=== PATIENT | male | born 1955 | race Caucasian/White ===

== ENCOUNTER → 2023-04-23 07:26 | Outpatient (REF) | payer MEDICARE, OTHER, SELFPAY | LOC: RAD 07:26 | PROVIDERS: ATTENDING PHYSICIAN Family Medicine | DX: R42 Dizziness and giddiness (principal); G45.4 Transient global amnesia | CPT/HCPCS: 76770; 93880 ==

== ENCOUNTER → 2023-12-13 07:14 | Outpatient (REF) | payer MEDICARE, OTHER, SELFPAY ==
[2023-12-13 09:23] LABS: % Basophils 1.4 % (0-2); % Eosinophils 5.4 % (0-6); % Immature Granulocytes 0.3 % (0-0.5); % Lymphocytes 31.5 % (20.5-51.1); % Monocytes 9.9 % (1.7-9.3); % Neutrophils 51.5 % (42.2-75.2); Absolute Basophils 0.1 10^3/uL (0-0.2); Absolute Eosinophils 0.3 10^3/uL (0-0.7); Absolute Monocytes 0.6 10^3/uL (0.1-0.6); Absolute Neutrophils 3.2 10^3/uL (1.4-6.5); Hematocrit 42.2 % (39.0-52.0); Hemoglobin 14.1 g/dL (13.0-18.0); Mean Corp Hgb Conc. 33.4 g/dL (33.0-37.0); Mean Corpuscular Hgb 31.3 pg (27.0-31.0); Mean Corpuscular Volume 93.8 fL (80.0-94.0); Mean Platelet Volume 10.3 fL (7.4-10.4); Nucleated Red Blood Cells % 0 % (-); Platelet Count 233 10^3/uL (130-400); Red Cell Dist. Width 12.2 % (11.5-14.5); White Blood Cell Count 6.3 10^3/uL (4.8-10.8)
[2023-12-13 10:07] LABS: Blood Urea Nitrogen 27 mg/dl (9-20); Calcium 9.2 mg/dl (8.4-10.2); Carbon Dioxide 27 mmol/L (22-30); Chloride 104 mmol/L (98-107); Glucose 106 mg/dl (70-99); Potassium 4.5 mmol/L (3.5-5.1); Sodium 142 mmol/L (135-145); eGFR > 60.00
== END ==
LOC: HWRAD 07:14
PROVIDERS: ATTENDING PHYSICIAN Specialist; FAMILY PHYSICIAN Family Medicine
DX: M25.511 Pain in right shoulder (principal); Z01.818 Encounter for other preprocedural examination
CPT/HCPCS: 36415; 73200; 80048; 85025; 93005

== ENCOUNTER → 2024-05-05 08:01 | Outpatient (REF) | payer MEDICARE, OTHER, SELFPAY | LOC: HWRAD 08:01 | PROVIDERS: ATTENDING PHYSICIAN Family Medicine; REFERRING PHYSICIAN Specialist | DX: R31.9 Hematuria, unspecified (principal) | CPT/HCPCS: 74176 ==

== ENCOUNTER 2024-05-14 06:28 | Day surgery (SDC) | payer MEDICARE, OTHER, SELFPAY ==
[2024-05-14] VITALS (9 sets, daily range): BP systolic 112–147; BP diastolic 71–94; BMI 23.8
[2024-05-14] MEDS: NORMOSOL-R/PLASMALYTE-A 1000 IV (10:15)
[2024-05-14] MEDS: SUBLIMAZE 25 MCG IV ×3 (12:50→13:16)
[2024-05-14] MEDS: Pyridium 200 MG PO (13:11)
[2024-05-14] MEDS: MOTRIN 600 MG PO (14:10)
== END 2024-05-14 15:15 | disposition home or self-care (01) ==
LOC: SDS 06:28
PROVIDERS: ATTENDING PHYSICIAN Specialist
DX: N20.2 Calculus of kidney with calculus of ureter (principal)
CPT/HCPCS: 52356; 74018; 76000; C2617

== ENCOUNTER 2024-05-15 06:56 | Inpatient (IN) | payer MEDICARE, OTHER, SELFPAY ==
[2024-05-14 23:05] VITALS: BP 154/114
[2024-05-14] MEDS: DILAUDID 1 MG IV (23:39)
[2024-05-14] MEDS: ZOFRAN 4 MG IV (23:39)
[2024-05-14 23:46] VITALS: BMI 23.6
[2024-05-15] VITALS (11 sets, daily range): BP systolic 119–149; BP diastolic 82–100; BMI 24.6
[2024-05-15 00:09] LABS: % Basophils 0.2 % (0-2); % Immature Granulocytes 0.4 % (0-0.5); % Lymphocytes 6.3 % (20.5-51.1); % Monocytes 2.8 % (1.7-9.3); % Neutrophils 90.3 % (42.2-75.2); Absolute Lymphocytes 0.6 10^3/uL (1.2-3.4); Absolute Monocytes 0.3 10^3/uL (0.1-0.6); Absolute Neutrophils 8.5 10^3/uL (1.4-6.5); Hematocrit 39.2 % (39.0-52.0); Hemoglobin 13.7 g/dL (13.0-18.0); Mean Corp Hgb Conc. 34.9 g/dL (33.0-37.0); Mean Corpuscular Hgb 31.6 pg (27.0-31.0); Mean Corpuscular Volume 90.3 fL (80.0-94.0); Mean Platelet Volume 10.4 fL (7.4-10.4); Nucleated Red Blood Cells % 0 % (-); Platelet Count 211 10^3/uL (130-400); Red Blood Cell Count 4.34 10^6/uL (4.70-6.10); Red Cell Dist. Width 11.9 % (11.5-14.5); White Blood Cell Count 9.4 10^3/uL (4.8-10.8)
[2024-05-15 00:15] LABS: ALT (SGPT) 20 U/L (0-50); AST (SGOT) 26 U/L (17-59); Albumin 4.4 g/dl (3.5-5.0); Alkaline Phosphatase 51 U/L (38-126); Blood Urea Nitrogen 25 mg/dl (9-20); Calcium 9.6 mg/dl (8.4-10.2); Carbon Dioxide 23 mmol/L (22-30); Chloride 102 mmol/L (98-107); Estimated Creatinine Clearance 91 ml/min; Glucose 144 mg/dl (70-99); Potassium 4.3 mmol/L (3.5-5.1); Sodium 132 mmol/L (135-145); Total Bilirubin 0.6 mg/dl (0.2-1.3); Total Protein 6.9 g/dl (6.3-8.2); eGFR > 60.00
--- NOTE | 2024-05-15 00:37 | ED.GENMED ---
History of Present Illness
<Javier Aguirre PA-C - Last Filed: 05/16/24 15:13>
General
Chief Complaint: Post Operative Problem(s)
Time Seen by Provider: 05/14/24 23:16
History of Present Illness
History of Present Illness:
68-year-old male with history of hypertension and hyperlipidemia presents the emergency department for evaluation of severe left lower quadrant/left pelvic pain beginning immediately after waking up from his urologic procedure earlier today. He
underwent laser lithotripsy of several ureteral and renal pelvis stones with placement of a ureteral stent. He states he woke up in severe pain and had a syncopal event in the PACU however was discharged nevertheless. At this time the patient is
writhing in pain, has had several episodes of vomiting.
Past History
<Javier Aguirre PA-C - Last Filed: 05/16/24 15:13>
Past History
ED Past Medical History: GERD, HTN, Hypercholesterolemia, Psychiatric (Anxiety) and Other (hypoglycemia); Negative CAD or CVA
ED Past Surgical History: Appendectomy, Orthopedic (Right shoulder arthroscopy, surgery for left knee torn ligament) and Other (hernia repair)
Social History
Tobacco: Non-smoker
Alcohol: Daily
Drug: None
Personal:
Living: with family
Employment: Employed
Family History
Family History: CAD (Father with heart issues and lung cancer, was a heavy smoker)
Review of Systems
<Javier Aguirre PA-C - Last Filed: 05/16/24 15:13>
Review of Systems
Allergies reviewed?: Yes
All Other Systems: ROS reviewed and negative except as documented in HPI and ROS
Phy Exam
<Javier Aguirre PA-C - Last Filed: 05/16/24 15:13>
Physical Exam
Physical Exam:
GEN: Writhing in pain, visibly uncomfortable
HEENT: Oral mucosa moist, no scleral icterus
Cardiac: Regular rate
Lung: No respiratory distress, no tachypnea
MSK: No gross deformity or injuries
Skin: Good color, no pallor or jaundice, no rashes
Neuro: AO x3, moves all extremities freely
Psych: Calm, cooperative
Sepsis
<Javier Aguirre PA-C - Last Filed: 05/16/24 15:13>
Sepsis Screen
Sepsis Screen: Sepsis Ruled Out
Date: 05/16/24
Time: 15:13
<Kamilla Hdez DO - Last Filed: 05/15/24 06:01>
Sepsis Screening
Sepsis Assessment: Sepsis Ruled Out
Sepsis Screen
Sepsis Screen: Sepsis Ruled Out
Date: 05/15/24
Time: 05:58
Course
<Javier Aguirre PA-C - Last Filed: 05/16/24 15:13>
Orders/Labs/Results
Orders:
Orders
05/14/24 23:22
Urinalysis Reflex To Culture Urgent
Date Specimen was Collected: 05/15/24
Time Specimen was Collected: 01:23
05/14/24 23:33
HYDROmorphone [Dilaudid] 1 mg .ROUTE .STK-MED ONE
HYDROmorphone [Dilaudid] 1 mg IV NOW STA
Ondansetron Injectable [Zofran] 4 mg .ROUTE .STK-MED ONE
Ondansetron Injectable [Zofran] 4 mg IV NOW STA
05/14/24 23:44
Complete Blood Count/With Diff Urgent
Comprehensive Metabolic Panel Urgent
05/15/24 00:18
CT Abd/pel Without Iv Or Oral Urgent
Comment:
Reason For Exam: LLQ pain after ureteral stenting
05/15/24 00:51
Hyoscyamine Sulfate [Levsin] 0.25 mg PO NOW STA
Ketorolac [Toradol] 15 mg IV NOW STA
05/15/24 00:59
Hyoscyamine Sulfate [Levsin] 0.25 mg PO NOW STA
05/15/24 01:25
Urine Microscopic Reflex Cult Urgent
Urine Culture Urgent
DELMA Source: U
Specimen Description:
Date Specimen was Collected: 05/15/24
Time Specimen was Collected: 01:23
05/15/24 01:39
Pisano Placement- Treatment ONCE
Reason for insertion: Outlet obstruction
05/15/24 02:00
UROLOGY CONSULT Urgent
Consulting Provider: Ric Ponce Jr.
Was physician already notified: Yes
05/15/24 05:50
HYDROmorphone [Dilaudid] 0.5 mg IV NOW STA
Ketorolac [Toradol] 15 mg IV Q6HPRN PRN
05/15/24 06:35
Admit/Transfer Patient As Directed
Co-Sign Provider:
Level of Care: Inpatient admission
Assign to:: Medical/Surgical
Physician / Group: janes
Diagnosis: renal colic
Patient Condition: Fair
Reason for Hospitalization: intractable pain
Expected length of stay greater than two midnights?: Yes
ELOS- Estimated Length of Stay in days: 3
I certify the patient meets the requirements for IP care: Yes
PRN Pain Medication Management As Directed
May give lesser potent ordered pain med per pt: Yes
preference::
Protocol:: Medication orders for pain may be administered in a
manner that supports deferring to patient preference
when the pt is:
- Requesting an ordered lesser potent pain medication.
Least to most potent pain medications are defined
as: acetaminophen < NSAID < tramadol < opioids
(morphine, oxycodone, hydromorphone).
- Requesting a lesser dose of the same medication IF
ORDERED.
- Requesting a less intrusive route of administration
if both routes are prescribed by the provider (PO <
IV).
05/15/24 09:34
0.9% Sodium Chloride 1000 ml [Nss] 1,000 ml IV 80 mls/hr
Acetaminophen [Tylenol] 650 mg PO Q4HPRN PRN
Amlodipine [Norvasc] 5 mg PO DAILY
CeFAZolin 1 GRAM [Ancef] 1 gram in 5 ml IV Q8H
Docusate Sodium [Colace] 100 mg PO BID
Losartan [Cozaar] 25 mg PO DAILY
Multivitamin [Theragran] 1 tablet PO DAILY
Pantoprazole [Protonix] 40 mg PO HSPRN PRN
Promethazine [Phenergan] 25 mg 0.9% Sodium Chloride 50 ml [Nss] 50 ml IV Q6HPRN
Tolterodine Extended Release [Detrol LA] 4 mg PO DAILY
coenzyme Q10 200 mg PO DAILY
diazePAM [Valium Injection] 5 mg IV Q4HPRN PRN
05/15/24 09:34
Case Management Consult Once
Case Management Consult: VN/Home Care
Requested By:: PHYSICIAN
Comment: home pisano care
Activity As Directed
Activity Level: Out of Bed- Ad Anisha
Anti-embolism (JOAN) Hose As Directed
Type: Thigh high
Catheter- Indwelling As Directed
Reason for insertion: Urology Determination
Intake/ Output As Directed
Frequency: Per unit guidelines
Nursing to Place Non Medication Order As Directed
Physician Order: Pisano to leg bag during the day and leg bag teaching
Pneumatic Compression Sleeves As Directed
Type: Thigh high
DX Deep Vein Thrombosis Video Routine
05/15/24 Lunch
Clear Liquid
At Your Request: Full Participation
Does patient need a safe tray?: No
05/15/24 10:21
HYDROmorphone [Dilaudid] 0.5 mg IV Q3HPRN PRN
05/15/24 18:00
Ketorolac [Toradol] 30 mg IV Q8H
05/15/24 22:00
Duloxetine Delayed Release [Cymbalta Delayed Release] 20 mg PO HS
Rosuvastatin Calcium [Crestor] 5 mg PO HS
05/16/24 07:02
Basic Metabolic Panel IN AM
Complete Blood Count/No Diff IN AM
Abnormal Lab Results
05/14/24 05/15/24
23:44 01:25
RBC 4.34 L 10^6/uL
(4.70-6.10)
MCH 31.6 H pg
(27.0-31.0)
Absolute Neuts (auto) 8.5 H 10^3/uL
(1.4-6.5)
Absolute Lymphs (auto) 0.6 L 10^3/uL
(1.2-3.4)
Neutrophils % 90.3 H %
(42.2-75.2)
Lymphocytes % 6.3 L %
(20.5-51.1)
Sodium 132 L mmol/L
(135-145)
BUN 25 H mg/dl
(9-20)
Glucose 144 H mg/dl
(70-99)
Ur Occult Blood Reflex 4+ A
(Negative)
Urine Nitrite (Reflex) Positive A
(Negative)
Urine Bilirubin 1+ A
(Negative)
Leukocyte Esterase Rfl 2+ A
(Negative)
Urine RBC >100 A /HPF
(0-2)
Urine WBC (Reflex) >100 A /HPF
(0-5)
Urine Bacteria (Reflex) Moderate A
(Negative)
Urine Albumin (Reflex) 3+ A
(Neg - Trace)
05/14/24 23:44
05/14/24 23:44
Vital Signs
Initial and Last Documented VS:
Initial Vital Signs
Pulse Resp BP Pulse Ox
114 30 154/114 98
05/14/24 23:05 05/14/24 23:05 05/14/24 23:05 05/14/24 23:05
Last Documented Vital Signs
Temp Pulse Resp BP Pulse Ox
97.8 F 61 16 147/95 95
05/16/24 07:41 05/16/24 07:41 05/16/24 07:41 05/16/24 07:41 05/16/24 07:41
<Kamilla Hdez DO - Last Filed: 05/15/24 06:01>
Orders/Labs/Results
Orders:
Orders
05/14/24 23:22
Urinalysis Reflex To Culture Urgent
Date Specimen was Collected: 05/15/24
Time Specimen was Collected: 01:23
05/14/24 23:33
HYDROmorphone [Dilaudid] 1 mg .ROUTE .STK-MED ONE
HYDROmorphone [Dilaudid] 1 mg IV NOW STA
Ondansetron Injectable [Zofran] 4 mg .ROUTE .STK-MED ONE
Ondansetron Injectable [Zofran] 4 mg IV NOW STA
05/14/24 23:44
Complete Blood Count/With Diff Urgent
Comprehensive Metabolic Panel Urgent
05/15/24 00:18
CT Abd/pel Without Iv Or Oral Urgent
Comment:
Reason For Exam: LLQ pain after ureteral stenting
05/15/24 00:51
Hyoscyamine Sulfate [Levsin] 0.25 mg PO NOW STA
Ketorolac [Toradol] 15 mg IV NOW STA
05/15/24 00:59
Hyoscyamine Sulfate [Levsin] 0.25 mg PO NOW STA
05/15/24 01:25
Urine Microscopic Reflex Cult Urgent
Urine Culture Urgent
DELMA Source: U
Specimen Description:
Date Specimen was Collected: 05/15/24
Time Specimen was Collected: 01:23
05/15/24 01:39
Pisano Placement- Treatment ONCE
Reason for insertion: Outlet obstruction
05/15/24 02:00
UROLOGY CONSULT Urgent
Consulting Provider: Ric Ponce Jr.
Was physician already notified: Yes
05/15/24 05:50
HYDROmorphone [Dilaudid] 0.5 mg IV NOW STA
Ketorolac [Toradol] 15 mg IV Q6HPRN PRN
05/15/24 06:35
Admit/Transfer Patient As Directed
Co-Sign Provider:
Level of Care: Inpatient admission
Assign to:: Medical/Surgical
Physician / Group: janes
Diagnosis: renal colic
Patient Condition: Fair
Reason for Hospitalization: intractable pain
Expected length of stay greater than two midnights?: Yes
ELOS- Estimated Length of Stay in days: 3
I certify the patient meets the requirements for IP care: Yes
PRN Pain Medication Management As Directed
May give lesser potent ordered pain med per pt: Yes
preference::
Protocol:: Medication orders for pain may be administered in a
manner that supports deferring to patient preference
when the pt is:
- Requesting an ordered lesser potent pain medication.
Least to most potent pain medications are defined
as: acetaminophen < NSAID < tramadol < opioids
(morphine, oxycodone, hydromorphone).
- Requesting a lesser dose of the same medication IF
ORDERED.
- Requesting a less intrusive route of administration
if both routes are prescribed by the provider (PO <
IV).
05/15/24 09:34
0.9% Sodium Chloride 1000 ml [Nss] 1,000 ml IV 80 mls/hr
Acetaminophen [Tylenol] 650 mg PO Q4HPRN PRN
Amlodipine [Norvasc] 5 mg PO DAILY
CeFAZolin 1 GRAM [Ancef] 1 gram in 5 ml IV Q8H
Docusate Sodium [Colace] 100 mg PO BID
Losartan [Cozaar] 25 mg PO DAILY
Multivitamin [Theragran] 1 tablet PO DAILY
Pantoprazole [Protonix] 40 mg PO HSPRN PRN
Promethazine [Phenergan] 25 mg 0.9% Sodium Chloride 50 ml [Nss] 50 ml IV Q6HPRN
Tolterodine Extended Release [Detrol LA] 4 mg PO DAILY
coenzyme Q10 200 mg PO DAILY
diazePAM [Valium Injection] 5 mg IV Q4HPRN PRN
05/15/24 09:34
Case Management Consult Once
Case Management Consult: VN/Home Care
Requested By:: PHYSICIAN
Comment: home pisano care
Activity As Directed
Activity Level: Out of Bed- Ad Anisha
Anti-embolism (JOAN) Hose As Directed
Type: Thigh high
Catheter- Indwelling As Directed
Reason for insertion: Urology Determination
Intake/ Output As Directed
Frequency: Per unit guidelines
Nursing to Place Non Medication Order As Directed
Physician Order: Pisano to leg bag during the day and leg bag teaching
Pneumatic Compression Sleeves As Directed
Type: Thigh high
DX Deep Vein Thrombosis Video Routine
05/15/24 Lunch
Clear Liquid
At Your Request: Full Participation
Does patient need a safe tray?: No
05/15/24 10:21
HYDROmorphone [Dilaudid] 0.5 mg IV Q3HPRN PRN
05/15/24 18:00
Ketorolac [Toradol] 30 mg IV Q8H
05/15/24 22:00
Duloxetine Delayed Release [Cymbalta Delayed Release] 20 mg PO HS
Rosuvastatin Calcium [Crestor] 5 mg PO HS
05/16/24 07:02
Basic Metabolic Panel IN AM
Complete Blood Count/No Diff IN AM
Abnormal Lab Results
05/14/24 05/15/24
23:44 01:25
RBC 4.34 L 10^6/uL
(4.70-6.10)
MCH 31.6 H pg
(27.0-31.0)
Absolute Neuts (auto) 8.5 H 10^3/uL
(1.4-6.5)
Absolute Lymphs (auto) 0.6 L 10^3/uL
(1.2-3.4)
Neutrophils % 90.3 H %
(42.2-75.2)
Lymphocytes % 6.3 L %
(20.5-51.1)
Sodium 132 L mmol/L
(135-145)
BUN 25 H mg/dl
(9-20)
Glucose 144 H mg/dl
(70-99)
Ur Occult Blood Reflex 4+ A
(Negative)
Urine Nitrite (Reflex) Positive A
(Negative)
Urine Bilirubin 1+ A
(Negative)
Leukocyte Esterase Rfl 2+ A
(Negative)
Urine RBC >100 A /HPF
(0-2)
Urine WBC (Reflex) >100 A /HPF
(0-5)
Urine Bacteria (Reflex) Moderate A
(Negative)
Urine Albumin (Reflex) 3+ A
(Neg - Trace)
05/14/24 23:44
05/14/24 23:44
Vital Signs
Initial and Last Documented VS:
Initial Vital Signs
Pulse Resp BP Pulse Ox
114 30 154/114 98
05/14/24 23:05 05/14/24 23:05 05/14/24 23:05 05/14/24 23:05
Last Documented Vital Signs
Temp Pulse Resp BP Pulse Ox
97.8 F 61 16 147/95 95
05/16/24 07:41 05/16/24 07:41 05/16/24 07:41 05/16/24 07:41 05/16/24 07:41
<Javier Aguirre PA-C - Last Filed: 05/16/24 15:13>
MDM/Problems Addressed
MDM/Problems Addressed:
68-year-old male presents with severe pain after ureteral stent placement. Imaging shows no evidence of complications. Pain was quite difficult to control, discussed with urology they recommend Pisano catheter placement however symptoms persisted
despite this. Will remain in the emergency department for [facility] urology consultation to determine further management. call center director urologist Dr Ponce acknowledged text message at [phone] regarding consult, will see in ED
<Javier Aguirre PA-C - Last Filed: 05/16/24 15:13>
*Critical Care Note
Total Time (30-74mins, 75-104mins- exclusive of procedures): Not Applicable
<Javier Aguirre PA-C - Last Filed: 05/16/24 15:13>
Update Note
Update Note:
CT showed no acute concerning findings, anticipated postsurgical changes. Discussed case with urology as I feel admission is appropriate at this juncture, urology recommends Pisano placement and if patient's pain is well-controlled may be discharged
outpatient follow-up
<Kamilla Hdez DO - Last Filed: 05/15/24 06:01>
Update Note
Update Note:
CT showed no acute concerning findings, anticipated postsurgical changes. Discussed case with urology as I feel admission is appropriate at this juncture, urology recommends Pisano placement and if patient's pain is well-controlled may be discharged
outpatient follow-up
ED Attending Note
<Javier Aguirre PA-C - Last Filed: 05/16/24 15:13>
-
Portions of this chart may have been created with voice recognition software.� Occasional wrong word or��sound alike� substitutions may have occurred due to the inherent limitations of voice recognition software.
<Kamilla Hdez DO - Last Filed: 05/15/24 06:01>
ED Attending Note
Patient seen and examined by attending physician: Yes
I performed a history and physical exam of patient and discussed management with resident, I reviewed resident's note and agree with documented findings and plan of care.: Yes
ED Attending Note:
06:00
Patient presents this evening after undergoing laser lithotripsy with stent placement yesterday. Complains of severe pain, syncopal event without injury after procedure and continued reports of orthostasis.
He remains afebrile, hemodynamically stable.
No significant relief after IV Dilaudid but has had significant relief after small IV dose of Toradol. Has been sleeping over the past 5 hours.
Pain is now returning.
Will give a small IV dose of Dilaudid and plan for additional dose of Toradol at 7 AM.
Pisano catheter draining clear amanda urine.
Will continue to observe in the ED with plan for urology evaluation at bedside this morning.
Discharge Plan
Departure
Patient Disposition: Admit
Presentation/result/management discussed w/ accepting MD/DO: urology
Discharge Problem:
Pain due to ureteral stent
Interventions
Interventions:
*Risk Screen - Suicide Last Done: 05/14/24 23:46
*General Assessment Last Done: 05/14/24 23:46
*Neglect/Abuse Screening Last Done: 05/14/24 23:46
*ED- Fall Risk Assessment Last Done: 05/14/24 23:46
*ED COVID-19 Vaccine History Last Done: 05/14/24 23:46
*Nursing Disposition Last Done: 05/15/24 09:31
ED-Skin Assessment Last Done: 05/15/24 06:00
Discharge Date and Time
Discharge Date/Time: 05/15/24 09:30
[2024-05-15] MEDS: LEVSIN 0.25 MG PO (01:18)
[2024-05-15] MEDS: TORADOL 15 MG IV ×2 (01:18→09:23)
[2024-05-15 01:40] LABS: Urine Albumin 3+ (Neg - Trace); Urine Bilirubin 1+ (Negative); Urine Character Slightly Cloudy (Clear); Urine Color Yellow; Urine Glucose Negative (Negative); Urine Ketone Negative (Negative); Urine Leukocyte 2+ (Negative); Urine Nitrite Positive (Negative); Urine Occult Blood 4+ (Negative); Urine Urobilinogen 1+ (Neg - 1+)
[2024-05-15 02:30] LABS: Urine Bacteria Moderate (Negative); Urine Red Blood Cell >100 /HPF (0-2); Urine White Cell >100 /HPF (0-5)
[2024-05-15] MEDS: DILAUDID 0.5 MG IV (05:55)
--- NOTE | 2024-05-15 06:40 | W.PN.ADMIT ---
Progress Note - Admit
Progress Note - Admit
see dictated note
pt with left u/l/s yesterday with dr spann
now with intractable LLQ pain despite pisano placement and meds
labs wnl except mildly low sodium/ct- prelim read-stent in good position- o hydro or sig extrav
pt's pain continues and he does not feel he can manage at home
no evid at this time of any sig pathology
admit for pain control- check ucx- continue pisano
--- NOTE | 2024-05-15 09:30 | EDRN ---
Patient taken to room 318-2 on stretcher by tool repair technician.
--- NOTE | 2024-05-15 09:46 | W.PN.UPDATE ---
Update Note
Progress Note Update
Pt see in ED.
Reports severe pain with micturition and persistent pain in LLQ.
'urine is normal color again'
no fevers, chills
pre-op urine cx demonstrated no growth
left ureteral stent is in proper position per CT
plan: pain control; will discharge when pain is managed
[2024-05-15] MEDS: DETROL LA 4 MG PO (10:05)
[2024-05-15] MEDS: COZAAR 25 MG PO (10:05)
[2024-05-15] MEDS: COLACE 100 MG PO ×2 (10:05→20:03)
[2024-05-15] MEDS: NORVASC 5 MG PO (10:05)
[2024-05-15] MEDS: THERAGRAN 1 TABLET PO (10:05)
[2024-05-15] MEDS: FLOMAX 0.4 MG PO (10:05)
[2024-05-15] MEDS: OMNICEF 300 MG PO ×2 (10:05→20:03)
[2024-05-15] MEDS: NSS 1000 IV ×2 (10:06→23:16)
[2024-05-15] MEDS: TORADOL 30 MG IV (17:07)
[2024-05-15] MEDS: CYMBALTA DELAYED RELEASE 20 MG PO (20:02)
[2024-05-15] MEDS: CRESTOR 5 MG PO (20:03)
[2024-05-16 00:40] VITALS: BP 143/59
[2024-05-16] MEDS: TORADOL 30 MG IV ×2 (01:32→09:58)
[2024-05-16 05:47] VITALS: BMI 24.4
[2024-05-16 07:26] LABS: Hematocrit 40.6 % (39.0-52.0); Hemoglobin 13.7 g/dL (13.0-18.0); Mean Corp Hgb Conc. 33.7 g/dL (33.0-37.0); Mean Corpuscular Hgb 32.1 pg (27.0-31.0); Mean Corpuscular Volume 95.1 fL (80.0-94.0); Mean Platelet Volume 10.5 fL (7.4-10.4); Platelet Count 199 10^3/uL (130-400); Red Blood Cell Count 4.27 10^6/uL (4.70-6.10); Red Cell Dist. Width 12.5 % (11.5-14.5); White Blood Cell Count 9.3 10^3/uL (4.8-10.8)
[2024-05-16 07:41] VITALS: BP 147/95
[2024-05-16 07:43] LABS: Blood Urea Nitrogen 20 mg/dl (9-20); Calcium 9.1 mg/dl (8.4-10.2); Carbon Dioxide 26 mmol/L (22-30); Chloride 107 mmol/L (98-107); Estimated Creatinine Clearance 75 ml/min; Glucose 92 mg/dl (70-99); Potassium 4.4 mmol/L (3.5-5.1); Sodium 141 mmol/L (135-145); eGFR > 60.00
--- NOTE | 2024-05-16 08:17 | W.PN.URO.CBU ---
Today's Communication / Plan
-
discharge
Assessment / Plan
-
stable/improved
Diagnosis
-
Date of Service: May 16, 2024
-
Patient Diagnosis: left nephrolithiasis s/p ureteroscopy, laser lithotripsy, stenting 05/14; intractable post-op pain
Post Op Day: 2
Subjective
-
feels better
renal pain during micturition
Objective
-
Vital Signs
Temp Pulse Resp BP Pulse Ox
97.8 F 61 16 147/95 95
05/16/24 07:41 05/16/24 07:41 05/16/24 07:41 05/16/24 07:41 05/16/24 07:41
Intake and Output
05/15/24 05/16/24 05/17/24
06:59 06:59 06:59
Intake Total 1260 / 1260
Output Total 2650 / 2650
Balance -1390 / -1390
Intake:
Oral fluids 1260 / 1260
Output:
Urine, Gallagher 850 / 850
Urine, Voided 1800 / 1800
Other:
Number of approximated MODERATE 8
amounts of urine
Laboratory Results
05/16/24 07:02
05/16/24 07:02
Physical Exam
-
General - well developed, well nourished, no acute distress
Chest - clear bilaterally
Abdomen - soft, non-tender, positive bowel sounds, no CVAT, no distention
Skin - warm & dry with no rash
Neuro - AOx3, no motor deficits
Extremities - no clubbing, no cyanosis, no edema
--- NOTE | 2024-05-16 08:19 | W.DS.TRANS ---
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
-
Discharge Instructions:
Discharge Diagnosis/Procedures Pain s/p Left Ureteroscopy, Laser Lithotripsy
and Stenting
Diet No restrictions
Activity No restrictions
Driving Restrictions no driving while taking prescription pain
medicati
Bathing Restrictions None
Instructions:
Stand-Alone Forms:
Changes to Home Medications: No
Discharge Medications:
DC Medications w/original date entered in [facility]
amlodipine 5 mg tablet 5 mg PO DAILY Blood Pressure 04/15/16
pantoprazole 40 mg tablet,delayed release 40 mg PO HS gerd 04/15/16
rosuvastatin 5 mg tablet 10 mg PO HS High Cholesterol 04/15/16
duloxetine 20 mg capsule,delayed release 20 mg PO HS Mental Health/Anxiety 08/14/17
losartan 25 mg tablet 25 mg PO DAILY Blood Pressure 08/14/17
meloxicam 15 mg tablet 15 mg PO DAILYPRN PRN mild pain 05/12/24
multivitamin 1 tab PO DAILY Supplement 05/12/24
turmeric 400 mg capsule 400 mg PO DAILY Supplement 05/12/24
coenzyme Q10 30 mg capsule 200 mg PO DAILY Supplement 05/15/24
ibuprofen 200 mg tablet (Advil) 800 mg PO HSPRN PRN mild pain 05/15/24
tamsulosin 0.4 mg capsule 0.4 mg PO BID to reduce stent bother #30 caps 05/15/24
tramadol 50 mg tablet 50 mg PO TID PRN severe pain #20 tabs 05/15/24
cefdinir 300 mg capsule 300 mg PO BID #10 caps 05/16/24
Home Medication Changes
Pending Results: No
[2024-05-16] MEDS: NORVASC 5 MG PO (08:49)
[2024-05-16] MEDS: COLACE 100 MG PO (08:49)
[2024-05-16] MEDS: DETROL LA 4 MG PO (08:49)
[2024-05-16] MEDS: THERAGRAN 1 TABLET PO (08:49)
[2024-05-16] MEDS: COZAAR 25 MG PO (08:49)
[2024-05-16] MEDS: FLOMAX 0.4 MG PO (08:49)
[2024-05-16] MEDS: OMNICEF 300 MG PO (08:49)
== END 2024-05-16 10:12 | disposition home or self-care (01) | DRG 700 ==
LOC: 3 WEST ACU 06:56
PROVIDERS: Physician Assistant; ADMITTING PHYSICIAN Specialist; EMERGENCY PHYSICIAN Emergency Medicine; FAMILY PHYSICIAN Specialist; REFERRING PHYSICIAN Family Medicine
DX: T83.84XA Pain due to genitourinary prosthetic devices, implants and grafts, initial encounter (principal); G89.18 Other acute postprocedural pain; M19.90 Unspecified osteoarthritis, unspecified site; K21.00 Gastro-esophageal reflux disease with esophagitis, without bleeding; K22.70 Barrett's esophagus without dysplasia; E78.00 Pure hypercholesterolemia, unspecified; I10 Essential (primary) hypertension; F41.9 Anxiety disorder, unspecified; Y83.1 Surgical operation with implant of artificial internal device as the cause of abnormal reaction of the patient, or of later complication, without mention of misadventure at the time of the procedure; Z80.1 Family history of malignant neoplasm of trachea, bronchus and lung; Z82.49 Family history of ischemic heart disease and other diseases of the circulatory system
CPT/HCPCS: 51702; 74176; 80048; 80053; 81003; 81015; 85025; 85027; 87086; 96374; 96375; 96376; 99284